=== PATIENT | male | born 1965 | race Caucasian/White ===

== ENCOUNTER 2017-02-28 16:35 | Emergency (ER) | payer MEDICARE, OTHER ==
[2017-02-28] MEDS ORDERED: Acetaminophen/HYDROcodone 325-7.5 MG Tab PO ONE (17:04)
--- NOTE | 2017-02-28 17:08 | EDM.PDOC ---
ED HPI GENERAL MEDICAL PROBLEM - General Chief Complaint: Back Pain or Injury Stated Complaint: BACK PAIN Time Seen by Provider: 02/28/17 16:58 - History of Present Illness INITIAL COMMENTS - FREE TEXT/NARRATIVE: HISTORY AND PHYSICAL: History of present illness: The patient is a 51-year-old male with a history of dga-sqbsisy-ntepyxuuw diabetes hypercholesterolemia spinal fusion of C-spine as well as lumbar spine in the past who presents after putting his foot in a heating vent and falling landing on his lumbar back and right wrist. Patient said he had some slight pain to his right knee where he has had surgery in the past but he is not worried about that and he is more worried about his back and his wrist. He did not his head pass out or black out and has no new head or neck pain. Prior to this event he was in his usual state of health and had no pain or neurosensory changes and since the event he has had no neurosensory changes. Has no chest pain shortness of breath or abdominal pain. Patient did not take any medication for the pain prior to coming here. Patient was able to ambulate at home and here and this event occurred just prior to admission. He has no weakness in his lower extremities. Review of systems: As per history of present illness and below otherwise all systems reviewed and negative. Past medical history: As per history of present illness and as reviewed below otherwise noncontributory. Surgical history: As per history of present illness and as reviewed below otherwise noncontributory. Social history: No reported history of drug or alcohol abuse. Family history: As per history of present illness and as reviewed below otherwise noncontributory. Physical exam: Gen.: Well-developed well-nourished man who ambulated into the ED and vital signs are noted by me. HEENT: Atraumatic, normocephalic, negative for conjunctival pallor or scleral icterus, mucous membranes moist, throat clear, neck supple, nontender, trachea midline. There are no midline step-offs in his defects of the cervical spine Lungs: Clear to auscultation, breath sounds equal bilaterally, chest nontender. Heart: S1S2, regular rate and rhythm no overt murmurs Abdomen: Soft, nondistended, nontender. NABS, there is no posterior rib tenderness Negative for costovertebral tenderness. Pelvis: Stable nontender. Genitourinary: Deferred. Rectal: Deferred. Extremities: Atraumatic with only minimal dorsal soft tissue swelling of the right wrist and no palpable bony deformities but there is diffuse tenderness, there is no distal hand finger or proximal forearm elbow or shoulder or clavicle tenderness deformities or swelling. Legs are, negative for cords or calf pain. Lower extremity supple range of motion without defects or deficits and at the right knee specifically there is no soft tissue swelling joint effusion bony deformities or discrete tenderness. Neurovascular unremarkable. Neuro: Awake, alert, oriented. Cranial nerves II through XII unremarkable. Cerebellum unremarkable. Motor and sensory unremarkable throughout. Exam nonfocal. Back: There are no midline step-offs or defects of the thoracic or lumbar spine , no posterior rib or pelvis tenderness, there is tenderness at the lumbar spine throughout specifically in the area of his old scar in the midline without ecchymosis soft tissue swelling or bruising. There is kyphosis of the thoracic spine. Diagnostics: X-ray lumbar spine and right wrist, patient defers evaluation of right knee Therapeutics: [place] Velcro wrist splint Impression: Lumbar back contusion, right wrist sprain status post fall Definitive disposition and diagnosis as appropriate pending reevaluation and review of above. Bilateral Lower Back Pain Score (Numeric/FACES): 8 - Related Data Allergies Allergy/AdvReac Type Severity Reaction Status Date / Time aspirin Allergy Swelling Verified 02/28/17 16:57 ibuprofen Allergy Swelling Verified 02/28/17 16:57 raw onions Allergy Swelling Uncoded 02/28/17 16:57 Home Meds: Home Meds Amitriptyline HCl 100 mg PO DAILY 11/10/15 [History] Citalopram [Celexa] 20 mg PO DAILY 11/10/15 [History] Liraglutide [Victoza] 1.8 mg SUBCUT DAILY 11/10/15 [History] Propranolol HCl [Propranolol] 3 tab PO BEDTIME 11/10/15 [History] atorvaSTATin [Lipitor] 1.5 tab PO BEDTIME 11/10/15 [History] glipiZIDE [Glucotrol] 1.5 tab PO BID 11/10/15 [History] rOPINIRole HCl [Ropinirole ER] 4 mg PO BID 11/10/15 [History] Gabapentin [Neurontin] 900 mg PO TID 02/28/17 [History] Past Medical History Cardiovascular History: Reports: High Cholesterol, Hypertension Respiratory History: Reports: PE Neurological History: Reports: Migraines Endocrine/Metabolic History: Reports: Diabetes, Type I - Past Surgical History Neurological Surgical History: Reports: Spinal Fusion Musculoskeletal Surgical History: Reports: Carpal Tunnel, Hip Replacement, Knee Replacement, Other (See Below) Social & Family History - Tobacco Use Smoking Status *Q: Never Smoker ED ROS GENERAL - Review of Systems Review Of Systems: ROS reveals no pertinent complaints other than HPI. ED EXAM, GENERAL - Physical Exam Exam: See Below (See dictation) Course - Vital Signs Last Recorded V/S: Last Vital Signs Temp 36.6 C 02/28/17 16:52 Pulse 106 H 02/28/17 16:52 Resp 18 02/28/17 16:52 BP 145/90 H 02/28/17 16:52 Pulse Ox 94 L 02/28/17 16:52 - Orders/Labs/Meds Orders: Active Orders 24 hr Category Date Time Status Lumbar Spine 2 or 3V [CR] Stat Exams 02/28/17 17:04 Taken Wrist Comp Min 3V Rt [CR] Stat Exams 02/28/17 17:04 Ordered DME for Discharge [COMM] Stat Oth 02/28/17 17:48 Ordered DME for Discharge [COMM] Stat Oth 02/28/17 17:48 Ordered Meds: Medications Discontinued Medications Generic Name Dose Route Start Last Admin Trade Name Fede PRN Reason Stop Dose Admin Hydrocodone Bitart/Acetaminophen 1 tab 02/28/17 17:04 02/28/17 17:29 [place] 325-7.5 Mg PO 02/28/17 17:05 1 tab ONETIME ONE Administration Departure - Departure Time of Disposition: 17:49 Disposition: Home, Self-Care 01 Condition: Good Clinical Impression: Fall Qualifiers: Encounter type: initial encounter Qualified Code(s): W19.XXXA - Unspecified fall, initial encounter Right wrist sprain Qualifiers: Encounter type: initial encounter Qualified Code(s): S63.501A - Unspecified sprain of right wrist, initial encounter Back contusion Qualifiers: Encounter type: initial encounter - Discharge Information Referrals: PCP,None [Primary Care Provider] - Forms: ED Department Discharge Additional Instructions: The following information is given to patients seen in the emergency department who are being discharged to home. This information is to outline your options for follow-up care. We provide all patients seen in our emergency department with a follow-up referral. The need for follow-up, as well as the timing and circumstances, are variable depending upon the specifics of your emergency department visit. If you don't have a primary care physician on staff, we will provide you with a referral. We always advise you to contact your personal physician following an emergency department visit to inform them of the circumstance of the visit and for follow-up with them and/or the need for any referrals to a consulting specialist. The emergency department will also refer you to a specialist when appropriate. This referral assures that you have the opportunity for followup care with a specialist. All of these measure are taken in an effort to provide you with optimal care, which includes your followup. Under all circumstances we always encourage you to contact your private physician who remains a resource for coordinating your care. When calling for followup care, please make the office aware that this follow-up is from your recent emergency room visit. If for any reason you are refused follow-up, please contact the [facility] emergency department at and ask to speak to the emergency department charge nurse. [facility] Primary care- Internal Medicine and Family [facility] [address] [place] [id number] [facility] Specialty Care--Orthopedic clinic Professional Building [address] [place] [address] [phone] Ice to areas of pain and swelling and use medications you have been given, [place] , for discomfort. Please follow-up with primary care or our orthopedics clinic this week for further care and evaluation return to ER as needed and as discussed - My Orders Last 24 Hours: My Active Orders 02/28/17 17:04 Lumbar Spine 2 or 3V [CR] Stat Wrist Comp Min 3V Rt [CR] Stat 02/28/17 17:48 DME for Discharge [COMM] Stat DME for Discharge [COMM] Stat - Assessment/Plan Last 24 Hours: My Active Orders 02/28/17 17:04 Lumbar Spine 2 or 3V [CR] Stat Wrist Comp Min 3V Rt [CR] Stat 02/28/17 17:48 DME for Discharge [COMM] Stat DME for Discharge [COMM] Stat
[2017-02-28 18:24] VITALS: BP 137/97
--- NOTE | 2017-03-02 16:55 | CR ---
EXAM DATE: 02/28/17 PATIENT'S AGE: 51 Patient: TANIA DELUCA Facility: [place], [place] Site . Site : 1965 Study: XRay Extremity Right [id number]/3/2017 5:15:20 PM Ordering Physician: Frankie Hill Final Report: Indication: Fell with right wrist injury. Technique: Three views of the right wrist. Comparison: None. Findings: No acute fracture or subluxation. Widened scapholunate articulation, consistent with chronic scapholunate ligament disruption and mild scapholunate advanced collapse. Otherwise unremarkable. Impression: 1. Negative for acute traumatic abnormality. 2. 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 Dictated by Ronald Wilson MD @ Feb 28 2017 5:19PM (Electronic Signature) Report Signed by Proxy. CLEMENT
--- NOTE | 2017-03-02 17:21 | CR ---
EXAM DATE: 02/28/17 PATIENT'S AGE: 51 Patient: TANIA DELUCA Facility: [place], [place] Site . Site : 1965 Study: XRay Spine Lumbar [id number]/3/2017 5:24:34 PM Ordering Physician: Frankie Hill Final Report: HISTORY: Trauma, fall. TECHNIQUE: Three views of the lumbar spine. COMPARISON: No prior. FINDINGS: Prior posterior vinay and pedicle screw along with interbody fusion at L5-S1. The placed hardware appears intact. There is no acute fracture. The alignment is maintained. Bilateral total hip replacements. IMPRESSION: 1. No acute fracture or malalignment. 2. Prior L5-S1 fusion with intact hardware. Dictated by Zacarias Rios MD @ 02/28/2017 5:40:08 PM Dictated by: Zacarias Rios MD @ 02/28/2017 17:40:12 (Electronic Signature) Report Signed by Proxy. [facility]ITAL[facility]
== END 2017-02-28 18:10 | disposition home or self-care (01) ==
LOC: MW.ED 16:35
DX: S63.501A Unspecified sprain of right wrist, initial encounter (principal); S30.0XXA Contusion of lower back and pelvis, initial encounter; E78.00 Pure hypercholesterolemia, unspecified; I10 Essential (primary) hypertension; E10.9 Type 1 diabetes mellitus without complications; Z79.899 Other long term (current) drug therapy; Z88.6 Allergy status to analgesic agent; Z96.649 Presence of unspecified artificial hip joint; Z96.659 Presence of unspecified artificial knee joint; W19.XXXA Unspecified fall, initial encounter
CPT/HCPCS: 72100; 99283; A9270; 73110-26-RT; 73110-RT